=== PATIENT | male | born 1955 | race Caucasian/White ===

== ENCOUNTER → 2016-12-20 | Outpatient (CLI) | payer MEDICARE ==
[~2016-12-20] VITALS: Ht 170.2 cm; Wt 89.8 kg
[~2016-12-20] MED LIST: /ADVA50050; ADV250INH INH; ADVAIR; COMBAER6 INH; COMBVENT; FLON0.05; FLUTISP; HYDR25TA6; HYZAAR; LOSA50TA21 PO; NS 1,000 ML IV SCH; PRIL20CA; PRIL20CA9 PO; PROPOFOL 200 MG/20 ML VIAL As Ordered ONE; SIMV20TA2 PO; SPIR1CAP INH; THEO1TAB4 PO; THEO400C; [UNRECOGNIZED DRUG - CODE]
--- NOTE | 2016-12-20 09:30 | ROOR ---
Patient Name: Anibal Sanders Procedure Date: 12/20/2016 8:50 AM Date of : 1955 Age: 61 Room: [facility] Gender: Male Note Status: Finalized Procedure: Colonoscopy to Cecum + Cold Snare Polypectomy + Hemoclips Indications: Screening for colorectal malignant neoplasm, Last colonoscopy: 2005 Providers: Rigoberto Ramírez MD Referring MD: ANNY RAMIREZ JR, MD Requesting Provider: Medicines: Monitored Anesthesia Care Complications: No immediate complications. Procedure: Pre-Anesthesia Assessment: - The heart rate, respiratory rate, oxygen saturations, blood pressure, adequacy of pulmonary ventilation, and response to care were monitored throughout the procedure. The Colonoscope was introduced through the anus and advanced to the cecum, identified by appendiceal orifice and ileocecal valve. The colonoscopy was performed without difficulty. The patient tolerated the procedure well. The quality of the bowel preparation was excellent. Findings: The perianal and digital rectal examinations were normal. Non-bleeding internal hemorrhoids were found during retroflexion. The hemorrhoids were small and Grade I (internal hemorrhoids that do not prolapse). Scattered small-mouthed diverticula were found in the recto-sigmoid colon, sigmoid colon and descending colon. A large polyp was found in the cecum. The polyp was sessile. The polyp was removed with a cold snare. Resection and retrieval were complete. To prevent bleeding after the polypectomy, four hemostatic clips were successfully placed (MR conditional). There was no bleeding at the end of the procedure. A small polyp was found at 20 cm proximal to the anus. The polyp was sessile. The polyp was removed with a cold snare. Resection and retrieval were complete. The exam was otherwise without abnormality on direct and retroflexion views. Impression: - Non-bleeding internal hemorrhoids. - Diverticulosis in the recto-sigmoid colon, in the sigmoid colon and in the descending colon. - One large polyp in the cecum, removed with a cold snare. Resected and retrieved. Clips (MR conditional) were placed. - One small polyp at 20 cm proximal to the anus, removed with a cold snare. Resected and retrieved. - The examination was otherwise normal on direct and retroflexion views. - The exam was otherwise normal to the cecum. Recommendation: - Patient has a contact number available for emergencies. The signs and symptoms of potential delayed complications were discussed with the patient. Return to normal activities tomorrow. Written discharge instructions were provided to the patient. - High fiber diet. - Discharge patient to home. - Continue present medications. - Await pathology results. - Telephone GI clinic for pathology results in 1 week. - Repeat colonoscopy for surveillance based on pathology results. - Return to referring physician. - The findings and recommendations were discussed with the patient's family. Rigoberto Ramírez MD Rigoberto Ramírez MD 12/20/2016 9:29:29 AM This report has been signed electronically. Number of Addenda: 0 Note Initiated On: 12/20/2016 8:50 AM Estimated Blood Loss: Estimated blood loss: none.
[2016-12-20 09:45] VITALS: BP 178/97
== END | disposition home or self-care (01) ==
LOC: M OPP 07:36
PROVIDERS: ATTEND Internal Medicine Gastroenterology
DX: Z12.11 Encounter for screening for malignant neoplasm of colon (principal); D12.0 Benign neoplasm of cecum; D12.5 Benign neoplasm of sigmoid colon; K64.0 First degree hemorrhoids; K57.30 Diverticulosis of large intestine without perforation or abscess without bleeding; I10 Essential (primary) hypertension; E78.5 Hyperlipidemia, unspecified; R12 Heartburn; R21 Rash and other nonspecific skin eruption; J44.9 Chronic obstructive pulmonary disease, unspecified; R06.02 Shortness of breath; Z87.891 Personal history of nicotine dependence; F12.20 Cannabis dependence, uncomplicated; Z79.899 Other long term (current) drug therapy

== ENCOUNTER 2018-02-13 11:41 | Day surgery (SDC) | payer MEDICARE ==
[2018-02-13] MEDS: NS 1,000 ML IV (12:00)
[2018-02-13] MEDS ORDERED: PROPOFOL 200 MG/20 ML VIAL As Ordered (14:22)
[2018-02-13] MEDS ORDERED: LIDOCAINE 2% INJ 100 MG/5 ML SDV (FOR ANES.) As Ordered (14:23)
== END 2018-02-13 14:37 | disposition home or self-care (01) ==
LOC: M OPP 14:37
DX: Z86.03 Personal history of neoplasm of uncertain behavior (principal); K64.0 First degree hemorrhoids; K62.1 Rectal polyp; D12.0 Benign neoplasm of cecum; D37.4 Neoplasm of uncertain behavior of colon; K57.30 Diverticulosis of large intestine without perforation or abscess without bleeding; K21.9 Gastro-esophageal reflux disease without esophagitis; I10 Essential (primary) hypertension; E78.00 Pure hypercholesterolemia, unspecified; J44.9 Chronic obstructive pulmonary disease, unspecified; Z79.899 Other long term (current) drug therapy; Z87.891 Personal history of nicotine dependence
CPT/HCPCS: 45385

== ENCOUNTER → 2018-06-15 | Outpatient (CLI) | payer MEDICARE | LOC: M RAD 10:31 | DX: M51.36 Other intervertebral disc degeneration, lumbar region (principal) | CPT/HCPCS: 72110 ==

== ENCOUNTER → 2019-07-10 | Outpatient (CLI) | payer MEDICARE ==
[~2019-07-10] MED LIST changes: -/ADVA50050; +ADVA1AER2; -LOSA50TA21 PO; +LOSA50TA5 PO; -NS 1,000 ML IV SCH; -PROPOFOL 200 MG/20 ML VIAL As Ordered ONE; +THEO1CAP6; +THEO1TAB PO; -THEO1TAB4 PO; -[UNRECOGNIZED DRUG - CODE]
--- NOTE | 2019-07-10 09:16 | REP ---
Abdominal aortic sonography: History: Abdominal aortic aneurysm screening, former smoker. . Findings: Scanning through the retroperitoneum demonstrates that the abdominal aorta is normal in caliber at the level of the diaphragmatic hiatus measuring 2.2 by 2.7 cm in AP by transverse dimension respectively. The measurements of the aorta at the level of the renal artery origins is 2.4 x 2.4 cm in AP by transverse dimension diameter respectively. The distal aorta tapers to 2.1 x 1.7 cm AP by transverse dimension. The right and left common iliac arteries are normal measuring 1.4 and 1.4 cm in AP dimension respectively. No aneurysm is seen. No periaortic disease is observed. Incidental note is made of eight 1.5 cm left lobe hepatic cyst. Impression: Negative abdominal aortic sonography. Electronically Signed by Jake Parekh MD 07/10/2019 09:07 A
== END ==
LOC: M RAD 08:14
PROVIDERS: ATTEND Internal Medicine
DX: Z87.891 Personal history of nicotine dependence (principal); K76.89 Other specified diseases of liver

== ENCOUNTER → 2021-07-01 | Outpatient (CLI) | payer MEDICARE ==
[~2021-07-01] MED LIST changes: -SIMV20TA2 PO; +SIMV20TA22 PO; -THEO1TAB PO; +THEO300T33 PO
--- NOTE | 2021-07-01 10:55 | REP ---
INDICATION: [id number] DEFICIENCY COMPARISON: 05/21/2014 TECHNIQUE: PA and lateral. FINDINGS: [id number] with tip in the SVC. Mediastinum and cardiac silhouette are normal. Lung arevalo demonstrate chronic appearing changes. No acute consolidation, effusion, or pneumothorax. Skeletal structures are intact. IMPRESSION: Stable chronic changes. No acute cardiopulmonary process appreciated. <Electronically signed by Elmo Bui > 07/01/21 [id number]
== END ==
LOC: M RAD 10:31
PROVIDERS: ATTEND Internal Medicine Pulmonary Disease
DX: E88.01 Alpha-1-antitrypsin deficiency (principal); Z85.828 Personal history of other malignant neoplasm of skin

== ENCOUNTER → 2021-07-24 | Outpatient (CLI) | payer MEDICARE ==
[~2021-07-24] MED LIST changes: +HYDR12.55 PO; +INCR1INH PO; +LOSA100T50 PO; +OMEP-218 PO; +ROSU10TA6 PO
== END ==
LOC: M LABSMTC 11:15
PROVIDERS: ATTEND Anesthesiology
DX: Z01.812 Encounter for preprocedural laboratory examination (principal); Z20.822 Contact with and (suspected) exposure to COVID-19

== ENCOUNTER 2021-07-29 08:26 | Day surgery (SDC) | payer MEDICARE ==
[~2021-07-29] VITALS: Ht 172.7 cm; Wt 92.1 kg
[~2021-07-29 08:26] MED LIST changes: +LOSA100T45 PO; -LOSA100T50 PO; +NS 1,000 ML IV ONE
[2021-07-29] MEDS ORDERED: fentaNYL 100 MCG/2 ML INJECTION (J3010) As Ordered ONE (09:58)
[2021-07-29] MEDS ORDERED: LIDOCAINE 2% 100MG/5ML SDV (FOR ANES.) As Ordered ONE (09:58)
[2021-07-29] MEDS ORDERED: propofoL 500 MG/50 ML VIAL As Ordered ONE (09:58)
[2021-07-29 10:50] VITALS: BP 171/98
== END 2021-07-29 10:54 | disposition home or self-care (01) ==
LOC: M OPP 08:26
PROVIDERS: ATTEND Internal Medicine Gastroenterology
DX: D12.6 Benign neoplasm of colon, unspecified (principal); K22.89 Other specified disease of esophagus; K64.0 First degree hemorrhoids; K57.30 Diverticulosis of large intestine without perforation or abscess without bleeding; Z86.010 Personal history of colon polyps; K44.9 Diaphragmatic hernia without obstruction or gangrene; K31.89 Other diseases of stomach and duodenum; R12 Heartburn; K21.9 Gastro-esophageal reflux disease without esophagitis; I10 Essential (primary) hypertension; E78.5 Hyperlipidemia, unspecified; Z87.891 Personal history of nicotine dependence; Z79.899 Other long term (current) drug therapy
CPT/HCPCS: 43239; 45385; 88305; J3010

== ENCOUNTER → 2023-08-18 | Outpatient (CLI) | payer MEDICARE ==
[~2023-08-18] MED LIST changes: -LOSA100T45 PO; +LOSA100T46 PO; -NS 1,000 ML IV ONE; +OMEP-173 PO; -OMEP-218 PO
== END ==
LOC: M RAD 09:28
PROVIDERS: ATTEND Internal Medicine Pulmonary Disease
DX: J44.9 Chronic obstructive pulmonary disease, unspecified (principal)

== ENCOUNTER → 2024-09-13 | Outpatient (CLI) | payer MEDICARE ==
[~2024-09-13] MED LIST changes: -ADV250INH INH; +ADVA1AER9 INH; -ROSU10TA6 PO; +ROSU10TA61 PO
== END ==
LOC: M RAD 09:19
PROVIDERS: ATTEND Internal Medicine Pulmonary Disease
DX: J44.9 Chronic obstructive pulmonary disease, unspecified (principal)

== ENCOUNTER → 2024-09-13 | Outpatient (REF) | payer MEDICARE ==
[2024-09-13 18:11] LABS: HEPATITIS B SURFACE ANTIGEN NEGATIVE (NEGATIVE)
[2024-09-13 18:32] LABS: HEPATITIS B CORE ANTIBODY IGM NEGATIVE (NEGATIVE)
[2024-09-13 18:33] LABS: HEPATITIS C VIRUS ABY INDEX < 0.02 INDEX (<0.8)
== END ==
LOC: M LAB REF 16:13
PROVIDERS: ATTEND Internal Medicine
DX: R74.01 Elevation of levels of liver transaminase levels (principal); J44.9 Chronic obstructive pulmonary disease, unspecified